=== PATIENT | female | born 2000 | race Caucasian/White ===

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

== ENCOUNTER 2022-02-07 13:44 | Emergency (ER) | payer OTHER, SELFPAY ==
[2022-02-07 14:47] VITALS: PULSE 78; RESP 18; TEMP 37.1; O2SAT 100; BMI 20.7
[2022-02-07 15:11] LABS: Appearance Urine HAZY; Color Urine YELLOW; Glucose Urine UA NEG (NEG); Leukocyte Esterase Urine NEG (NEG); Nitrite Urine NEG (NEG); PH 5.5 (5.0-8.0); Specific Gravity - Urine >= 1.030 (1.005-1.025); Urine Blood NEG (NEG); Urine Ketones NEG (NEG); Urine Protein NEG (NEG-TRACE)
[2022-02-07 15:29] LABS: Bacteria Urine 1+ /LPF; Mucus Urine 4+ /LPF; Squamous Epithelial Cell Urine 4+ /LPF; WBC Urine 0-2 /HPF (0-4)
--- NOTE | 2022-02-07 17:04 | ED.FEMALEGU ---
HPI - Female Genitourinary General Chief complaint: Urogenital-Female Stated complaint: uti Time Seen by Provider: 02/07/22 15:04 Source: patient and RN notes reviewed Mode of arrival: ambulatory Limitations: no limitations History of Present Illness HPI Narrative: This is a 53-kekq-dsh-female who presents to the emergency department with complaints of urinary frequency, dysuria, and urinary suprapubic tenderness x 1 week. She also admits to having some burning sensation in her vagina. Patient states that she has a history of urinary tract infections in the past, last one was last fall and her symptoms feel similar. She denies any fevers, chills, nausea, vomiting, diarrhea. She states that she is sexually active with one male partner. Denies any pain with sexual intercourse. She is on the mini-pill which she is compliant with, does not use condoms. Reports no abnormal vaginal discharge or bleeding. Her last menstrual cycle was on January 12, 2022. Denies any other complaints or concerns at this time. MD elicited complaint: dysuria, UTI and pelvic pain Pertinent past history: recurrent UTIs Onset (ago): week(s) Location of symptoms: suprapubic Severity: moderate Female Urogenital Radiation: Suprapubic Quality of pain: cramping Consistency: intermittent Vaginal discharge: none Vaginal bleeding: none Urinary symptoms: Dysuria, Urgency and Frequency Exacerbating factors: urination Relieving factors: none Associated symptoms: denies other symptoms Treatment prior to arrival: none Sexual activity: Yes Possible : unsure if Date of Last Menstrual Period: 01/12/22 Related Data Home Medications Medication Instructions Recorded Confirmed dicyclomine 10 mg capsule cap PO 09/08/20 ferrous gluconate 324 mg (38 mg tab PO 09/08/20 iron) tablet omeprazole 20 mg capsule,delayed 1 cap PO DAILY 09/08/20 09/08/20 release Previous Rx's Medication Instructions Recorded nitrofurantoin 100 mg PO BID 7 days #14 caps 05/10/21 monohydrate/macrocrystals 100 mg capsule (Macrobid) phenazopyridine 100 mg tablet 100 mg PO TID PRN pain for uti 6 05/10/21 (Pyridium) doses #6 tabs penicillin V potassium 500 mg 500 mg PO TID 10 days #30 tabs 10/15/21 tablet metronidazole 500 mg tablet 500 mg PO BID 7 days #13 tabs 02/07/22 Allergies Allergy/AdvReac Type Severity Reaction Status Date / Time No Known Allergies Allergy Verified 02/07/22 14:47 Review of Systems Review of Systems: Constitutional: No Fever, No Chills ENT/Mouth: No sore throat, No Rhinorrhea, No Swallowing Difficulty Eyes: No Eye Pain, No Swelling, No Redness Cardiovascular: No Chest Pain, No SOB, No Orthopnea, No Edema Respiratory: No Cough, No Sputum, No Wheezing, No dyspnea Gastrointestinal: No Nausea, No Vomiting, No Diarrhea,+suprapubic tenderness. Genitourinary: +Dysuria, +Urinary Frequency, +Urinary urgency Musculoskeletal: No joint pain, No Myalgias Skin: No Skin Lesions, No rash Neuro: No Weakness, No Numbness, No Dizziness, No Headache Psych: No Anxiety/Panic, No Depression PMFSH Past Medical History Medical History Anemia Anxiety GERD (gastroesophageal reflux disease) Date of Last Menstrual Period: 01/12/22 Social History Social History Alcohol intake: current Alcohol intake frequency: does not drink Advance Directives: No Advance Directives Information Provided: No Physical Exam Vital Signs: Vital Signs: Last Vital Signs Temp 98.7 F 02/07/22 14:47 Pulse 78 02/07/22 14:47 Resp 18 02/07/22 14:47 Pulse Ox 100 02/07/22 14:47 O2 Del Method 02/07/22 14:47 BMI result Body Mass Index 20.7 Appearance: Alert. Oriented X3. No acute distress. Eyes: Pupils equal, round and reactive to light. ENT: Pharynx normal. Neck: Normal inspection. Neck supple. CVS: Normal heart rate and rhythm. Pulses normal. Respiratory: No respiratory distress. Breath sounds normal. Abdomen: Soft and nontender. +BS x4 Pelvic: normal appearance of external genitalia, vaginal canal and cervix with moderate amount of white discharge. no lesions. no CMT. no adenxal tenderness or masses on palpation Skin: Skin warm and dry. Normal skin color. Normal skin turgor. No rashes. Extremities: No lower extremity edema. : No CVA tenderness. Neuro: Oriented X 3. No motor deficit. No sensory deficit. Course Course Course Narrative: 52-ontw-ayq-female who presents today with urinary urgency, frequency, and dysuria x 1 week. Hx of utis, last UTI in fall 2020. Sxs feel similar. Patient is sexually active with one partner. No abnormal vaginal d/c. Urinalysis today showed high specific gravity > 1.030, otherwise no nitrites or WBC, or signs of infection. urine HCG ordered. Reevaluation(s) Reevaluation #1: Patient was re-evaluated, hCG urine was negative. Pelvic examination finding on concerning for bacterial vaginosis, bacterial vaginosis panel, gonorrhea chlamydia swabs, and Trichomonas prep collected during pelvic examination. We will treat empirically with Flagyl 500 mg BID for 7 days. Patient given her 1st dose of Flagyl 500 mg by mouth at the emergency department today. We will call patient with any positive results. Patient advised to avoid drinking any alcohol while taking Flagyl. Patient understands and agrees with this plan. Time: 19:17 [facility] - Female Genitourinary Lab Data Labs: Lab Results 02/07/22 02/07/22 Range/Units 15:06 15:06 Urine Color YELLOW Urine Appearance HAZY Urine pH 5.5 (5.0-8.0) Ur Specific Godfrey >= 1.030 H (1.005-1.025) Urine Protein NEG (NEG-TRACE) MG/DL Urine Glucose (UA) NEG (NEG) MG/DL Urine Ketones NEG (NEG) MG/DL Urine Blood NEG (NEG) Urine Nitrite NEG (NEG) Ur Leukocyte Esterase NEG (NEG) Urine RBC 1-4 (0) /HPF Urine WBC 0-2 (0-4) /HPF Ur Squamous Epith Cells 4+ /LPF Urine Bacteria 1+ /LPF Urine Mucus 4+ /LPF Urine Test NEGATIVE (NEGATIVE) Critical Care Time Critical Care Time Critical Care Time: No Discharge Plan Discharge Clinical Impression: Vaginitis Patient Disposition: Home, Self-Care Instructions: Bacterial Vaginosis (ED), Vaginal Discharge (ED) Additional Instructions: Your urine testing showed no evidence of a UTI today. Your test was negative. You received your first dose of Flagyl in the department today, and you can start your prescribed dose tomorrow. Do not drink alcohol while taking this medication. We will call you with any positive testing results from today's visit. Follow up with your primary care physician. If you develop new or worsening symptoms call 911 or come back to the ER for further evaluation. Prescriptions: New metronidazole 500 mg tablet 500 mg PO BID 7 Days Qty: 13 0RF No Action omeprazole 20 mg capsule,delayed release(DR/EC) 1 cap PO DAILY dicyclomine 10 mg capsule PO ferrous gluconate 324 mg (38 mg iron) tablet PO nitrofurantoin monohyd/m-cryst [Macrobid] 100 mg capsule 100 mg PO BID 7 Days Qty: 14 0RF Rx Instructions: must administer with a meal/food phenazopyridine [Pyridium] 100 mg tablet 100 mg PO TID PRN (Reason: pain for uti) Qty: 6 0RF penicillin V potassium 500 mg tablet 500 mg PO TID 10 Days Qty: 30 0RF Interventions: ED Discharge Assessment Last Done: 02/07/22 19:17 Discharge Date/Time: 02/07/22 19:17
[2022-02-07 17:34] LABS: UPreg QC Valid YES; Urine Pregnancy NEGATIVE (NEGATIVE)
[2022-02-07] MEDS: metroNIDAZOLE 500 MG TABLET PO (19:04)
[2022-02-08 09:02] LABS: CT PCR NOT DETECTED (Not Detect.); NG PCR NOT DETECTED (Not Detect.)
[2022-02-08 09:36] LABS: BV Int Neg Control Negative (Negative); BV Int Pos Control Positive (Positive)
== END 2022-02-07 19:17 | disposition home or self-care (01) ==
PROVIDERS: Physician Assistant; Emergency Provider Internal Medicine; PCP Specialist
DX: N76.0 Acute vaginitis (principal)
CPT/HCPCS: 81001; 81025; 87480; 87491; 87510; 87591; 87660; 99282; 99283

== ENCOUNTER 2022-02-08 14:08 | Outpatient (RCR) | payer OTHER, SELFPAY ==
[2022-02-08 14:15] VITALS: BP 118/77; PULSE 97
--- NOTE | 2022-03-22 08:49 | MHC.PT.DC ---
[facility] [place] Office [place] Office [place] Office [address] [phone] F: [phone] F: [phone] F: [phone] F: [phone] Physical Therapy Discharge Report Diagnosis: Vertigo- vestibular rehab Date of Surgery: NA Date of Evaluation: 02/08/22 Date of Discharge: 03/22/22 Treatments to Date: 1 Cancellations to Date: 0 No Shows to Date: 0 Discharge Status: Independent with HEP Discharge Summary: Ramandeep presented only with mild symptoms of vestibular hypofunction. She decided trial balance exercises at home. She is therefore being d/c from PT. Electronically signed by: Tracee June PT DPT Please sign and return to therapist. Thank you for your referral.
== END 2022-03-22 08:49 | disposition home or self-care (01) ==
LOC: HO.PT 14:08
PROVIDERS: PCP Specialist; Visit Provider Otolaryngology
DX: R42 Dizziness and giddiness (principal)
CPT/HCPCS: 97112; 97161

== ENCOUNTER 2023-05-03 07:15 | Outpatient (AMB) | payer OTHER, SELFPAY ==
[2023-05-03 07:23] VITALS: BP 108/62; PULSE 79; O2SAT 99; BMI 20.9
--- NOTE | 2023-05-03 07:23 | A.OFFPC_ITS ---
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 Past medical history significant for GERD,IBS Follows with Dr. Maldonado, anxiety, depression. Patient reports has has history of cutting since age 15, denies SI/HI. States currently following with a weekly therapist. Patient reports previously on Wellbutrin and Lexapro for treatment however she did not like side effects of the Lexapro. Patient agreeable to trial on Zoloft 25 mg daily. Patient reports she is sexually active with multiple partners and does not use condoms, requesting STI testing. STI testing ordered. Patient also reports last menstrual. The beginning of March for which she took plan B pill at that time and has not yet gone her menses. Patient reports she took 2 at home tests which were negative. Will draw HCG level. Patient also reports frequent recurrent UTIs last UTI approximately 1 month ago patient feels like she is starting to develops symptoms of dysuria again urinalysis with reflex culture ordered. Eye exam: 2021, recommended every couple of years. TDAP: Unknown; patient recommended to have Tdap in office today however she declines would like us to receive records from previous PCPs office. Record requested. Previous: [facility] Medical History (Updated 05/03/23 @ 07:59 by KATH Hernandez) Depression GERD (gastroesophageal reflux disease) Anemia Anxiety Family History Father Depression Anxiety Mental health disorder Mother No problems noted. Brother No problems noted. Sister No problems noted. Sister No problems noted. Social History (Updated 05/03/23 @ 07:39 by KATH Hernandez) Housing: Other Alcohol intake: never Patient Tobacco Use Status: Never used Tobacco e-Cigarette/Vaping Use: Never Used Second Hand Smoke Exposure: No Current occupational status: employed Cognitive needs: No Hearing needs: No Vision needs: Yes Female Reproductive History Menstrual Age of Menarche: 13 Duration of menses: 6-7 days Date of last menstrual period: 03/21/23 control method: none Questionnaire PHQ-9 Over the last 2 weeks, how often have you been bothered by any of the following problems? 1. Little interest or pleasure in doing things: more than half the days 2. Feeling down, depressed, or hopeless: more than half the days 3. Trouble falling or staying asleep, or sleeping too much: more than half the days 4. Feeling tired or having little energy: more than half the days 5. Poor appetite or overeating: more than half the days 6. Feeling bad about yourself - or that you are a failure or have let yourself or your family down: several days 7. Trouble concentrating on things, such as reading the newspaper or watching television: several days 8. Moving or speaking so slowly that other people could have noticed. Or the opposite - being so fidgety or restless that you have been moving around a lot more than usual: not at all 9. Thoughts that you would be better off or of hurting yourself in some way: several days Total score: 13 Depression Screening Interpretation: Positive Depression Screening Follow-up: In treatment (Therapist ) Depression Screening Done: Yes 72337 - PHQ-9 Billing: Yes Source: Developed by Drs. Kit Lamas, Layla Cardozo, Jesse Todd and colleagues, with an educational anthony from [employer]. Thrive Questionnaire Date Thrive assessed: 05/03/23 I am a: Patient What is your living situation today?: I have a steady place to live Within the past 12 months, did the food you bought not last and you didn't have the money to get more?: Never true Within the past 12 months, did you worry whether your food would run out before you got money to buy more?: Never true Do you have trouble paying for medicines?: No Do you have trouble getting transportation to medical appointments?: No Do you have trouble paying your heating and electricity bill?: No Do you have trouble taking care of your child, family member or friend?: No Do you have trouble with day-to-day activities such as bathing, preparing meals, shopping, managing finances, etc.?: No Are you currently unemployed and looking for a job?: No Are you interested in more education?: No Currently or been in a relationship where the following occur: no concerns reported AUDIT C Alcohol Use Questionnaire (AUDIT-C) 1. How often do you have a drink containing alcohol?: Never 3. How often do you have six or more drinks on one occasion?: Never Total Score: 0 REANNA-7 AMB Questionnaire REANNA-7 Date REANNA - 7 assessed: 05/03/23 Feeling nervous, anxious, or on edge: 2 = More than half the days Not being able to stop or control worryin = More than half the days Worrying too much about different things: 2 = More than half the days Trouble relaxin = More than half the days Being so restless that it is hard to sit still: 0 = Not at all Becoming easily annoyed or irritable: 2 = More than half the days Feeling afraid as if something awful might happen: 2 = More than half the days Total REANNA-7 score (0-4 normal; 5-9 mild; 10-14 moderate; 15-21 severe): 12 Source: Developed by Drs. Kit Lamas, Layla Cardozo, Jesse Todd and colleagues, with an educational anthony from [employer]. REANNA-7 Assessment Billing REANNA-7 Assessment Tool: REANNA-7 Assessment 89011 Review of Systems Const Denies chills, Denies fatigue, Denies fever(s) and Denies poor appetite Eyes Denies no additional complaints ENT Reports Normal hearing present Card Denies chest pain, Denies syncope, Denies rapid heart rate and Denies dyspnea Resp Denies cough and Denies dyspnea GI Denies change in stool character, Denies constipation, Denies diarrhea, Denies nausea and Denies vomiting Denies urinary frequency, Denies dysuria and Denies urinary urgency Neuro Reports Normal hearing present, Denies confusion and Denies syncope Psych Denies confusion Endo Denies fatigue Physical exam (Primary Care) Vital Signs: Last Vital Signs Pulse 79 05/03/23 07:23 BP 108/62 05/03/23 07:23 Pulse Ox 99 05/03/23 07:23 Oxygen Delivery Method Room Air 05/03/23 07:23 BMI result Body Mass Index 20.9 Tobacco/Smoking Status: Tobacco use Status Tobacco use date assessed 05/03/23 05/03/23 07:32 Patient Tobacco Use Status Never used Tobacco 05/03/23 07:39 e-Cigarette/Vaping Use Never Used 05/03/23 07:39 PHQ-9: PHQ-9 Score PHQ-9: Total score 13 05/03/23 07:46 Depression Screening Interpretation: Positive Depression Screening Follow-up: In treatment (Therapist ) Thrive Assessment: Date of Thrive Assessment Date Thrive assessed 05/03/23 05/03/23 07:32 Currently or been in a relationship where the following occur: no concerns reported Const General: No confusion Orientation/consciousness: No confusion HENMT Head: Yes normocephalic and Yes atraumatic Ears: external ears normal and TM's normal bilaterally General nose exam: Normal external nose present and Normal nasal mucous membranes and turbinates present Face and sinus: Yes normal facial exam and Yes sinuses nontender Mouth: moist mucous membranes Throat: Yes tonsils normal Eyes Conjunctivae: conjunctivae normal Sclerae: sclerae normal Pupils: Equal, round and reactive pupils present and Pupils normal by confrontation EOM: EOMs intact bilaterally Direct Ophthalmoscopy: normal light reflex Neck Neck: Yes no lymphadenopathy and Yes supple Thyroid: Thyroid normal Chest Chest palpation & inspection: normal inspection of the chest Resp Effort & Inspection: normal respiratory effort Auscultation: clear to auscultation bilaterally, no crackles, no rhonchi and no wheezes Cardio Rate: regular rate Rhythm: regular rhythm Peripheral pulses: radial pulses present and dorsalis pedis present GI Inspection: Yes normal to inspection Palpation (GI): Soft to palpation, nontender and No hepatosplenomegaly present Auscultation: normoactive bowel sounds Skin General skin exam: no rashes or lesions noted Neuro General: No confusion Cranial nerves: Yes Equal, round and reactive pupils present and Yes Normal hearing present Cognition (Neuro): normal cognition Gait exam (Neuro): Normal gait present Motor exam (neuro): 5/5 motor strength present throughout Deep tendon reflexes (DTR's): Right brachioradialis reflex intensity grade: 2+, Left brachioradialis reflex intensity grade: 2+, Right patellar reflex intensity grade: 2+ and Left patellar reflex intensity grade: 2+ Extrem General: No edema Office Procedures Flu Questionnaire Does the patient have a severe egg allergy?: No Does the patient have severe life threatening allergies?: No Does the patient have a fever or illness today?: No Has the patient ever had Guillain-[place] Syndrome?: No Has the patient ever had any past reaction to a flu shot?: No Immunizations flu vacc [id number] 6mos up(PF) 60 mcg(15 mcgx4)/0.5 mL IM syringe Performing Provider: KATH Hernandez [facility] Documented (not given) by: Linda Adames CMA on 05/03/23 08:02 Reason Not Given: Patient Refused Assessment and Plan Assessment & Plan (1) Dysuria: Code(s): R30.0 - Dysuria Plan: Urinalysis with reflex culture ordered. (2) Anemia: Code(s): D64.9 - Anemia, unspecified Plan: CBC ordered. (3) Anxiety: Code(s): F41.9 - Anxiety disorder, unspecified Plan: Continue to follow with weekly therapy Sertraline 25 mg daily ordered. (4) Depression: Code(s): F32.A - Depression, unspecified Plan: Continue to follow with weekly therapy Sertraline 25 mg daily ordered. Denies SI/HI Patient made aware black box warning potentially could increased suicidal ideation, signs and symptoms reviewed with patient when to seek emergency medical attention or call crisis. (5) GERD (gastroesophageal reflux disease): Code(s): K21.9 - Gastro-esophageal reflux disease without esophagitis Plan: Patient continues to report burning in the esophagus multiple times per week, would like to re-initiate on omeprazole. Omeprazole 20 mg daily sent to patient's pharmacy. Avoid the foods that cause that, usually spicy foods, tomato products, juices, coffee, soda and foods that you're sensitive to.? After eating do not lie down, allow 3-4 hours before lying down. And keep the head of the bed above 30 degrees to avoid the acid from going up. Continue to follow with gastroenterology. (6) Physical exam, annual: Code(s): Z00.00 - Encounter for general adult medical examination without abnormal fin dings Plan: Follow-up in 1 year for physical exam Plan Follow-up in 6 weeks. Orders: Orders Complete Blood Count Auto Diff Today D64.9 - Anemia, unspecified Comprehensive Met. Panel Today F32.A - Depression, unspecified, F41.9 - Anxiety disorder, unspecified TSH reflex Free T4 Today Z13.29 - Encounter for screening for other suspected endocrine disorder UA CC w/rflx Micro + Cult Today R30.0 - Dysuria HIV Ab/Ag Today Z11.3 - Encounter for screening for infections with a pre dominantly sexual mode of transmission Syphilis Screen Today Z11.3 - Encounter for screening for infections with a predominantly sexual mode of transmission HCG Quantitative Today N92.6 - Irregular menstruation, unspecified CT NG by PCR Today Z11.8 - Encounter for screening for other infectious and parasitic diseases Hepatitis B,C Profile Today Z11.3 - Encounter for screening for infections with a predominantly sexual mode of transmission Influenza [id number] Immunization Today Z23 - Encounter for immunization Medications: New sertraline (Zoloft) 25 mg PO DAILY 30 tabs 1RF F32.A - Depression, unspecified, F41.9 - Anxiety disorder, unspecified omeprazole 20 mg PO DAILY 90 caps 2RF Coding Level of Care Code New Pt Prev Care 18-39yr([id number] Diagnoses Dysuria R30.0 Anemia D64.9 Anxiety F41.9 Depression F32.A GERD (gastroesophageal reflux disease) K21.9 Physical exam, annual Z00.00 Additional Codes REANNA-7 Assessment Billing - REANNA-7 Assessment Tool: REANNA-7 Assessment 18088 ([id number])
== END 2023-05-03 07:59 | disposition home or self-care (01) ==
PROVIDERS: PCP Nurse Practitioner Family; Visit Provider Nurse Practitioner Family
DX: Z00.00 Encounter for general adult medical examination without abnormal findings (principal); R30.0 Dysuria; D64.9 Anemia, unspecified; F41.9 Anxiety disorder, unspecified; F32.A Depression, unspecified; K21.9 Gastro-esophageal reflux disease without esophagitis
CPT/HCPCS: 96127; 99385

== ENCOUNTER 2023-05-03 08:10 | Outpatient (REF) | payer OTHER, SELFPAY ==
[2023-05-03 08:23] LABS: MANUAL DIFF FLAG NO
[2023-05-03 08:37] LABS: Basophils Percent Auto 0.3 % (0-2); Eosinophils Absolute Auto 0.1 X10*3/uL (0.0-0.4); Eosinophils Percent Auto 0.9 % (0-4); Hematocrit 39.9 % (37.0-47.0); Hemoglobin 12.5 g/dl (12.0-16.0); Imm Gran Abs Auto 0.05 X10*3/uL (0.00-0.03); Imm Gran Pct Auto 0.7 % (0.0-0.4); Lymphocytes Absolute Auto 1.9 X10*3/uL (1.2-4.9); Lymphocytes Percent Auto 24.4 % (20-40); Mean Corpuscular HGB Conc 31.3 g/dl (31.0-35.0); Mean Corpuscular Volume 76.6 fL (80.0-98.0); Mean Platelet Volume 10.7 fL (9.4-12.3); Monocytes Absolute Auto 0.4 X10*3/uL (0.1-1.2); Monocytes Percent Auto 5.8 % (2-11); Neutrophils Absolute Auto 5.1 x10*3/uL (2.0-8.3); Neutrophils Percent Auto 67.9 % (45-73); Platelet Count 288 X10*3/uL (160-400); Red Blood Count 5.21 X10*6/uL (4.20-5.50); Red Cell Distribution Width 14.8 % (11.0-16.0); White Blood Count 7.6 X10*3/uL (4.8-10.8)
[2023-05-03 09:11] LABS: Alanine Aminotransferase 8 U/L (0-31); Albumin Level 4.4 g/dL (3.5-5.0); Alkaline Phosphatase 53 U/L (39-117); Anion Gap 11 (12-20); Aspartate Amino Transferase 12 U/L (5-31); Bilirubin Total 0.5 mg/dL (0.0-1.0); Blood Urea Nitrogen 8 mg/dL (9-16); Calcium 9.3 mg/dL (8.4-10.2); Carbon Dioxide 24 mmol/L (22-29); Chloride 108 mmol/L (96-108); Estimated Glomerular Filt Rate > 60; Glucose Random 91 mg/dL (60-115); Sodium 139 mmol/L (135-145); Total Protein 7.7 g/dL (6.5-8.0)
[2023-05-03 09:24] LABS: HBS Num1 0.18 mIU/mL (0-7.99); HBc Num1 0.08 S/CO (0.00-0.79); HBsAGNum1 0.36 S/CO (0.00-0.99); HIV AB/AG Nonreactive (Nonreactive); HIV Num 1 0.07 S/CO (0.00-0.99); Hepatitis B Core Antibody Nonreactive (Nonreactive); Hepatitis B Surface Antigen Negative (Negative); ~HepC Num1 0.05 S/CO (0.00-0.79); ~Hepatitis B Surface Antibody NONREACTIVE (Nonreactive); ~Hepatitis C Antibody Nonreactive (Nonreactive)
[2023-05-03 09:25] LABS: Syphilis Screen Nonreactive (Nonreactive)
[2023-05-03 09:30] LABS: HCG Quantitative < 2 mIU/mL; TSH reflex Free T4 0.76 uIU/mL (0.32-4.0)
[2023-05-03 09:44] LABS: Appearance Urine Cloudy; Color Urine Yellow; Glucose Urine UA Negative (Negative); Leukocyte Esterase Urine Trace (Negative); Nitrite Urine Negative (Negative); PH 7.5 (5.0-9.0); Specific Gravity - Urine 1.025 (1.005-1.025); UMIC TRIGGER UACC YES; Urine Blood Negative (Negative); Urine Ketones Trace mg/dL (Negative); Urine Protein Negative (Neg-Trace)
[2023-05-03 10:07] LABS: Bacteria Urine 2+ (None Seen); Hyaline Casts Urine 0-2 /LPF (0-2); RBC Urine 0-2 /HPF (0-2); Squamous Epithelial Cell Urine >20 /HPF (0-2); WBC Urine 0-5 /HPF (0-5)
== END 2023-05-03 08:11 | disposition home or self-care (01) ==
LOC: HO.LAB 08:10
PROVIDERS: PCP Nurse Practitioner Family; Visit Provider Nurse Practitioner Family
DX: F32.A Depression, unspecified (principal); F41.9 Anxiety disorder, unspecified; N92.6 Irregular menstruation, unspecified; D64.9 Anemia, unspecified; R30.0 Dysuria; Z13.29 Encounter for screening for other suspected endocrine disorder; Z11.8 Encounter for screening for other infectious and parasitic diseases; Z20.2 Contact with and (suspected) exposure to infections with a predominantly sexual mode of transmission
CPT/HCPCS: 36415; 80053; 81001; 84443; 84702; 85025; 86704; 86706; 86780; 86803; 87340; 87389

== ENCOUNTER 2023-06-14 08:26 | Outpatient (AMB) | payer OTHER, SELFPAY ==
[2023-06-14 08:38] VITALS: BP 116/70; PULSE 84; O2SAT 98; BMI 20.9
--- NOTE | 2023-06-14 08:38 | MHC.PC.OV ---
Vital Signs 06/14/23 08:38 Height 5 ft 3 in Weight 118 lb BMI 20.9 BP 116/70 Blood Pressure Location Lt brachial Position Sitting Pulse 84 Pulse Source Pulse Oximeter Pulse Oximetry (%) 98 Oxygen Delivery Method Room Air Intake Visit Reasons: Anxiety/Depression follow up Nuclear Operator Required: No Accompanied by: Self / Same As Patient Allergies No Known Allergies Allergy (Verified 06/14/23 08:41) Tobacco use date assessed: 05/03/23 Dental Screening Dental Screen Date: 06/14/23 Did you have a dental visit in the last 12 months?: No Did you have a dental problem in the last 6 months where you did not have access to dental care?: No Was dental information given to patient?: Patient has dentist HPI HPI Comments History of Present Illness Details 23-year-old female new patient presents today for follow good. Past medical history significant for GERD,IBS Follows with Dr. Maldonado, anxiety, depression. Patient reports has has history of cutting since age 15, denies SI/HI. States currently following with a weekly therapist. Patient was started on zoloft last appointment. Patient reports doing well on Zoloft, states she had 1 week of slight dizziness when she initially started the medication however that symptom has resolved. Denies symptoms of SI/HI. Patient continues on omeprazole 20 mg daily for GERD. Denies any dyspepsia. Patient denies any acute concerns at this time. [facility] Medical History (Updated 05/03/23 @ 07:59 by KATH Hernandez) Depression GERD (gastroesophageal reflux disease) Anemia Anxiety Family History Father Depression Anxiety Mental health disorder Mother No problems noted. Brother No problems noted. Sister No problems noted. Sister No problems noted. Social History Housing: Other Alcohol intake: never Patient Tobacco Use Status: Never used Tobacco e-Cigarette/Vaping Use: Never Used Second Hand Smoke Exposure: No Current occupational status: employed Cognitive needs: No Hearing needs: No Vision needs: Yes Female Reproductive History Menstrual Age of Menarche: 13 Questionnaire Thrive Questionnaire Date Thrive assessed: 05/03/23 REANNA-7 AMB Questionnaire REANNA-7 Date REANNA - 7 assessed: 05/03/23 Source: Developed by Drs. Kit Lamas, Layla Cardozo, Jesse Todd and colleagues, with an educational anthony from [employer]. Review of Systems Const Denies chills, Denies fatigue, Denies fever(s) and Denies poor appetite Eyes Denies no additional complaints ENT Reports Normal hearing present Card Denies chest pain, Denies syncope, Denies rapid heart rate and Denies dyspnea Resp Denies cough and Denies dyspnea GI Denies change in stool character, Denies constipation, Denies diarrhea, Denies nausea and Denies vomiting Denies urinary frequency, Denies dysuria and Denies urinary urgency Neuro Reports Normal hearing present, Denies confusion and Denies syncope Psych Denies confusion Endo Denies fatigue Physical exam (Primary Care) Vital Signs: Last Vital Signs Pulse 84 06/14/23 08:38 BP 116/70 06/14/23 08:38 Pulse Ox 98 06/14/23 08:38 Oxygen Delivery Method Room Air 06/14/23 08:38 BMI result Body Mass Index 20.9 Tobacco/Smoking Status: Tobacco use Status Tobacco use date assessed 05/03/23 06/14/23 08:42 Patient Tobacco Use Status Never used Tobacco 06/14/23 08:42 e-Cigarette/Vaping Use Never Used 06/14/23 08:42 Thrive Assessment: Date of Thrive Assessment Date Thrive assessed 05/03/23 06/14/23 08:42 Const General: No confusion Orientation/consciousness: No confusion HENMT Head: Yes normocephalic and Yes atraumatic Eyes Conjunctivae: conjunctivae normal Chest Chest palpation & inspection: normal inspection of the chest Resp Effort & Inspection: normal respiratory effort Auscultation: clear to auscultation bilaterally, no crackles, no rhonchi and no wheezes Cardio Rate: regular rate Rhythm: regular rhythm Heart sounds: S1 normal heart sound present and S2 normal heart sound present GI Inspection: Yes normal to inspection Neuro General: No confusion Cranial nerves: Yes Normal hearing present Extrem General: No edema Assessment and Plan Assessment & Plan (1) Anxiety: Code(s): F41.9 - Anxiety disorder, unspecified Plan: Continue on Zoloft. Continue to follow with weekly counseling Rx sent on Zoloft prescription. (2) Depression: Code(s): F32.A - Depression, unspecified Plan: Continue on Zoloft. Continue to follow with weekly counseling (3) GERD (gastroesophageal reflux disease): Code(s): K21.9 - Gastro-esophageal reflux disease without esophagitis Plan: Continue on omeprazole 20 mg daily. Avoid the foods that cause that, usually spicy foods, tomato products, juices, coffee, soda and foods that you're sensitive to.? After eating do not lie down, allow 3-4 hours before lying down. And keep the head of the bed above 30 degrees to avoid the acid from going up. Plan Keep scheduled physical exam or follow-up sooner if needed. Medications: Refilled sertraline (Zoloft) 25 mg PO DAILY 30 tabs 1RF F32.A - Depression, unspecified, F41.9 - Anxiety disorder, unspecified Coding Level of Care Code Est Pt Level 3 (95778) Diagnoses Anxiety F41.9 Depression F32.A GERD (gastroesophageal reflux disease) K21.9
== END 2023-06-14 09:02 | disposition home or self-care (01) ==
PROVIDERS: PCP Nurse Practitioner Family; Visit Provider Nurse Practitioner Family
DX: F41.9 Anxiety disorder, unspecified (principal); F32.A Depression, unspecified; K21.9 Gastro-esophageal reflux disease without esophagitis
CPT/HCPCS: 99213

== ENCOUNTER 2024-01-03 13:27 | Outpatient (AMB) | payer OTHER, SELFPAY ==
--- NOTE | 2024-01-03 13:28 | AM.OFFWIN_ITS ---
Intake Vital Signs 3 01/03/24 13:29 Height 5 ft 3 in Weight 121 lb BMI 21.4 BP 120/76 Blood Pressure Location Lt brachial Position Sitting Pulse 106 H Pulse Source Pulse Oximeter Temp 97.9 F Temp Source Temporal Artery Scan Pulse Oximetry (%) 98 Oxygen Delivery Method Room Air Intake Visit Reasons: EP pelvic/lower abdominal pain (IBS) Intake Note: pt is here today for pelvic lower adb pain started yesterday Patient Tobacco Use Status: Never used Tobacco Allergies No Known Allergies Allergy (Verified 01/03/24 13:35) Medication List - Last Reconciled 01/03/24 by Samantha Mccarthy MD omeprazole 20 mg PO DAILY Do you need a note to return to daycare/school/sports/work: No HPI EP pelvic/lower abdominal pain (IBS) 2 HPI0 Details Patient is 23-year-old female came in today for pelvic pain Patient says that 1 month ago she saw her OBGYN and was diagnosed with bacterial vaginosis She was given clindamycin to be used locally vaginally, she finished it but her discharge never got better Yesterday around 18:00 she started having pain in pelvic area which did not get better so she came in for evaluation We did the urine test as well which came back mildly positive for leuk esterase without any blood Thirty of protein and pH of 9.0. I have sent urine for culture She does not frequency or dysuria, does have slight discomfort when she urinates but no burning sensatio I feel her symptoms on not due to urine infection We did a GC chlamydia culture And vaginal culture is taken for bacterial vaginosis panel Meanwhile I would treat her for mild pelvic inflammatory disease considering her age and she is being sexually active And has been having vaginal discharge since last 1 month [facility] Medical History Depression GERD (gastroesophageal reflux disease) Anemia Anxiety Family History Father Depression Anxiety Mental health disorder Mother No problems noted. Brother No problems noted. Sister No problems noted. Sister No problems noted. Social History Housing: Other Alcohol intake: never Patient Tobacco Use Status: Never used Tobacco e-Cigarette/Vaping Use: Never Used Second Hand Smoke Exposure: No Current occupational status: employed Cognitive needs: No Hearing needs: No Vision needs: Yes Female Reproductive History Menstrual Age of Menarche: 13 Review of Systems Const All systems reviewed & are unremarkable except as noted in HPI and below Physical Exam Vital Signs: Last Vital Signs Temp 97.9 F 01/03/24 13:29 Pulse 106 H 01/03/24 13:29 BP 120/76 01/03/24 13:29 Pulse Ox 98 01/03/24 13:29 Oxygen Delivery Method Room Air 01/03/24 13:29 BMI result Body Mass Index 21.4 Const General: no acute distress Orientation/consciousness: patient oriented x3 Eyes General: appearance normal, both eyes and all related structures Resp Effort & Inspection: normal respiratory effort and able to speak in complete sentences GI Abdomen image: 2 1. Mild discomfort with deep pressure Neuro General: patient oriented x3 Psych Mental Status: mental status grossly normal Results AMB Urinalysis, Automated 2 UA Leukoctes 70 Mikayla/uL Last Edit by DEVON Egdar on 01/03/24 13:47 UA Nitrite Negative Last Edit by DEVON Edgar on 01/03/24 13:47 UA Urobilinogen 0.2 mg/dL Last Edit by DEVON Edgar on 01/03/24 13:4 7 UA Protein 30 mg/dL Last Edit by DEVON Edgar on 01/03/24 13:47 UA pH 9.0 Last Edit by DEVON Edgar on 01/03/24 13:47 UA Blood 0 Rivera/uL Last Edit by DEVON Edgar on 01/03/24 13:47 UA Specific Lequire 1.005 Last Edit by DEVON Edgar on 01/03/24 13: 47 UA Ketone Positive Last Edit by DEVON Edgar on 01/03/24 13:47 UA Bilirubin 1 mg/dL Last Edit by DEVON Edgar on 01/03/24 13:47 UA Glucose 0 mg/dL Last Edit by DEVON Edgar on 01/03/24 13:47 Results Reviewed Results Reviewed: Laboratory Last Values Urine pH (Auto) 9.0 01/03/24 13:45 Specific Lequire (Auto) 1.005 01/03/24 13:45 Urine Protein (Auto) 30 mg/dL 01/03/24 13:45 Glucose (UA)(Auto) 0 mg/dL 01/03/24 13:45 Urine Ketones (Auto) Positive 01/03/24 13:45 Urine Blood (Auto) 0 Rivera/uL 01/03/24 13:45 Urine Nitrite (Auto) Negative 01/03/24 13:45 Urine Bilirubin (Auto) 1 mg/dL 01/03/24 13:45 Urine Urobilinogen (Auto) 0.2 mg/dL 01/03/24 13:45 Leukocyte Esterase (Auto) 70 Mikayla/uL 01/03/24 13:45 Assessment & Plan Assessment & Plan (1) Pelvic inflammatory disease (PID): Code(s): N73.9 - Female pelvic inflammatory disease, unspecified (2) Vaginal discharge: Code(s): N89.8 - Other specified noninflammatory disorders of vagina (3) Pelvic pain: Code(s): R10.2 - Pelvic and perineal pain Plan Patient is 23-year-old female came in today for pelvic pain Patient says that 1 month ago she saw her OBGYN and was diagnosed with bacterial vaginosis She was given clindamycin to be used locally vaginally, she finished it but her discharge never got better Yesterday around 18:00 she started having pain in pelvic area which did not get better so she came in for evaluation We did the urine test as well which came back mildly positive for leuk esterase without any blood Thirty of protein and pH of 9.0. I have sent urine for culture She does not frequency or dysuria, does have slight discomfort when she urinates but no burning sensatio I feel her symptoms on not due to urine infection We did a GC chlamydia culture And vaginal culture is taken for bacterial vaginosis panel Meanwhile I would treat her for mild pelvic inflammatory disease considering her age and she is being sexually active And has been having vaginal discharge since last 1 month Orders: Orders 2 CT NG by PCR Today N89.8 - Other specified noninflammatory disorders of vagina, R10.2 - Pelvic and perineal pain Bacterial Vaginosis Panel Today N89.8 - Other specified noninflammatory disorders of vagina, R10.2 - Pelvic and perineal pain AMB Urinalysis Automated Today Z13.9 - Encounter for screening, unspecified Urine Culture Today R30.0 - Dysuria Medications: New 2 doxycycline hyclate 100 mg PO BID 7 days 14 caps 0RF metronidazole 500 mg PO BID 7 days 14 tabs 0RF Coding Level of Care Code Est Pt Level 4 (53407) Diagnoses Pelvic inflammatory disease (PID) N73.9 Vaginal discharge N89.8 Pelvic pain R10.2
[2024-01-03 13:29] VITALS: BP 120/76; PULSE 106; TEMP 36.6; O2SAT 98; BMI 21.4
== END 2024-01-03 15:46 | disposition home or self-care (01) ==
PROVIDERS: PCP Nurse Practitioner Family; Visit Provider Internal Medicine
DX: N73.9 Female pelvic inflammatory disease, unspecified (principal); N89.8 Other specified noninflammatory disorders of vagina; R10.2 Pelvic and perineal pain
CPT/HCPCS: 81003; 99214

== ENCOUNTER 2024-01-03 13:47 | Outpatient (REF) | payer OTHER, SELFPAY ==
[2024-01-03 18:07] LABS: Bacterial Vaginosis PCR POSITIVE (Negative); Candida Group PCR NOT DETECTED (Not Detect); Candida glab krusei PCR NOT DETECTED (Not Detect); Trichomonas vaginalis PCR NOT DETECTED (Not Detect)
[2024-01-03 18:40] LABS: CT PCR NOT DETECTED (Not Detect.); NG PCR NOT DETECTED (Not Detect.)
== END 2024-01-03 13:48 | disposition home or self-care (01) ==
LOC: HO.LAB 13:47
PROVIDERS: Visit Provider Internal Medicine
DX: N89.8 Other specified noninflammatory disorders of vagina (principal); R10.2 Pelvic and perineal pain; R30.0 Dysuria
CPT/HCPCS: 0352U; 0353U; 87086

== ENCOUNTER 2024-12-24 10:36 | Outpatient (REF) | payer OTHER, SELFPAY ==
[2024-12-24 10:49] LABS: MANUAL DIFF FLAG NO
[2024-12-24 11:36] LABS: Basophils Percent Auto 0.5 % (0-2); Eosinophils Absolute Auto 0.1 X10*3/uL (0.0-0.4); Eosinophils Percent Auto 1.7 % (0-4); Hematocrit 40.1 % (37.0-47.0); Hemoglobin 12.8 g/dl (12.0-16.0); Imm Gran Abs Auto 0.02 X10*3/uL (0.00-0.03); Imm Gran Pct Auto 0.3 % (0.0-0.4); Lymphocytes Absolute Auto 1.9 X10*3/uL (1.2-4.9); Lymphocytes Percent Auto 31.8 % (20-40); Mean Corpuscular HGB Conc 31.9 g/dl (31.0-35.0); Mean Corpuscular Hemoglobin 24.7 pg (27.0-33.0); Mean Corpuscular Volume 77.4 fL (80.0-98.0); Mean Platelet Volume 10.9 fL (9.4-12.3); Monocytes Absolute Auto 0.4 X10*3/uL (0.1-1.2); Neutrophils Absolute Auto 3.5 x10*3/uL (2.0-8.3); Neutrophils Percent Auto 58.7 % (45-73); Platelet Count 310 X10*3/uL (160-400); Red Blood Count 5.18 X10*6/uL (4.20-5.50); Red Cell Distribution Width 14.2 % (11.0-16.0); White Blood Count 5.9 X10*3/uL (4.8-10.8)
[2024-12-24 12:10] LABS: Alanine Aminotransferase 25 U/L (0-31); Albumin Level 4.8 g/dL (3.5-5.0); Alkaline Phosphatase 56 U/L (39-117); Anion Gap 13 (12-20); Aspartate Amino Transferase 24 U/L (5-31); Bilirubin Total 0.8 mg/dL (0.0-1.0); Blood Urea Nitrogen 13 mg/dL (9-16); Calcium 9.9 mg/dL (8.4-10.2); Carbon Dioxide 25 mmol/L (22-29); Chloride 108 mmol/L (96-108); Estimated Glomerular Filt Rate > 60; Glucose Random 82 mg/dL (60-115); Iron 70 mcg/dL (30-160); Percent Iron Saturation 20 % (15-50); Potassium 3.8 mmol/L (3.3-5.1); Sodium 142 mmol/L (135-145); Total Iron Binding Capacity 356 mcg/dL (228-428); Total Protein 7.8 g/dL (6.5-8.0); Unsaturated Iron Binding 286 ug/dL
--- OUTSIDE RECORDS SUMMARY | 2024-12-24 12:25 | XMS_ITS | Encounter Summary ---
Author Organization [facility] Address [address] [place] [address] Phone Care Team Providers Care [employer] Name Role Phone Lavonne Garcia MD Primary Care Provider [phone] Encounter Details Date Type Department Care Team (Late st Contact Info) Description 02/28/2017 Conversion Encounter [facility] [place] [address] [place] [address] Social History Tobacco Use Types Packs/Day Years Used Date Smoking Tobacco: Never Comments:Never smoker Comments Unknown Sex and Gender Information Value Date Recorded Sex Assigned at Not on file Legal Sex Female 5:12 PM EDT Gender Identity Female 09/05/2020 8:02 AM EST Sexual Orientation Not on file documented as of this encounter Plan of Treatment Not on file documented as of this encounter Visit Diagnoses Not on filedocumented in this encounter Care Teams [employer] Relationship Specialty Start Date End Date Lavonne Garcia MD [address] [place] [address] PCP - General 02/22/17 02/19/23 documented as of this encounter
[2024-12-24 12:26] LABS: TSH reflex Free T4 0.99 uIU/mL (0.32-4.0); Vitamin D 25-OH Total 11.4 ng/mL (>30)
[2024-12-24 12:38] LABS: Folate 14.3 ng/mL (> or = 4.0); Vitamin B12 387 pg/mL (200-900)
== END 2024-12-24 10:37 | disposition home or self-care (01) ==
LOC: HO.LAB 10:36
PROVIDERS: PCP Physician Assistant; Visit Provider Psychiatry & Neurology Psychiatry
DX: F32.A Depression, unspecified (principal)
CPT/HCPCS: 36415; 80053; 82306; 82607; 82746; 83540; 84443; 85025